=== PATIENT | male | born 1975 | race Two or more races ===

== ENCOUNTER 2017-12-25 08:01 | Emergency (ER) | payer SELFPAY ==
[~2017-12-25] VITALS: Ht 170.2 cm; Wt 72.6 kg
[2017-12-25 08:03] VITALS: BP 127/77
== END 2017-12-25 09:09 | disposition left against medical advice (07) ==
LOC: ER 08:01
DX: R10.11 Right upper quadrant pain (principal); Z53.21 Procedure and treatment not carried out due to patient leaving prior to being seen by health care provider